=== PATIENT | male | born 1940 | race Caucasian/White ===

== ENCOUNTER 2017-04-27 15:44 | Inpatient (IN) | payer OTHER, MEDICARE ==
[~2017-04-27 15:44] MED LIST: AMINOPHYLLINE INJ/PF 250 MG/10 ML SDV IV ONE; REGADENOSON INJ 0.4 MG/5 ML DISP.SYRIN IV ONE
--- NOTE | 2017-04-27 15:56 | ER Document Report ---
ED Medical Screen (RME) - General Chief Complaint: Irregular Pulse Stated Complaint: RAPID HEART BEAT Time Seen by Provider: 04/27/17 15:55 Mode of Arrival: Wheelchair Information source: Patient TRAVEL OUTSIDE OF THE [place] IN LAST 30 DAYS: No - HPI Patient complains to provider of: Rapid heart rate Notes: 04/27/17 15:55 Patient is a 76-year-old male presenting to the emergency room complaining rapid heart rate, EKG is consistent with SVT at a rate of 161, patient was immediately taken to a room in the main department - Related Data Allergies/Adverse Reactions: No Known Allergies Allergy (Verified 09/08/15 07:41) Past Medical History - Past Medical History Cardiac Medical History: Reports: Hx Hypertension Endocrine Medical History: Reports: Hx Diabetes Mellitus Type 2 Renal/ Medical History: Denies: Hx Peritoneal Dialysis Past Surgical History: Reports: Hx Adenoidectomy - Immunizations Hx Diphtheria, Pertussis, Tetanus Vaccination: No Physical Exam - Vital signs Vitals: Pulse Resp BP Pulse Ox 164 H 18 181/113 H 97 04/27/17 15:53 04/27/17 15:53 04/27/17 15:53 04/27/17 15:53 Course - Vital Signs Vital signs: Temp Pulse Resp BP Pulse Ox 164 H 18 181/113 H 97 04/27/17 15:53 04/27/17 15:53 04/27/17 15:53 04/27/17 15:53
[2017-04-27] MEDS ORDERED: ADENOSINE INJ/PF 6 MG/2 ML SDV IV ONE ×2 (15:58→16:27)
[2017-04-27] MEDS ORDERED: NORMAL SALINE 1000 ML 1,000 ML IV ONE ×2 (16:06→17:48)
--- NOTE | 2017-04-27 16:07 | ER Document Report ---
ED Cardiac - General Mode of Arrival: Wheelchair Information source: Patient TRAVEL OUTSIDE OF THE [place] IN LAST 30 DAYS: No <CELESTINO DALAL - Last Filed: 04/27/17 17:12> <HEAVENLY GTZ - Last Filed: 04/27/17 17:35> - General Chief Complaint: Irregular Pulse Stated Complaint: RAPID HEART BEAT Time Seen by Provider: 04/27/17 15:55 Notes: This 76-year-old male patient comes emergency room for rapid heart rate. He reports he woke up Saturday with some right-sided chest discomfort and noticed his heart was racing. He finally came to the emergency room today at the prompting of a neighbor friend. The triage and EKG showed a heart rate of 163 and suggested SVT. Close analysis of the EKG suggested a slight discrepancy in some of the RR intervals. He was given Adenocard which only minimally slowed the rate but made the monitor strip appeared to be more in atrial flutter than SVT. Based on this he was given 25 mg of Cardizem IV and it slowed the rate to 77 showing obvious atrial flutter with 4-1 block. There are no other acute changes noted on the EKG. He has never had this problem in the past. There is been no fever, cough, shortness of breath. He had been on lisinopril in the past for blood pressure but stopped taking it 6-8 months ago. He does take 5 mg of glipizide twice daily for type 2 diabetes. (HEAVENLY GTZ) - Related Data Allergies/Adverse Reactions: No Known Allergies Allergy (Verified 09/08/15 07:41) Past Medical History - General Information source: Patient - Social History Smoking Status: Never Smoker Cigarette use (# per day): No Chew tobacco use (# tins/day): No Smoking Education Provided: No Frequency of alcohol use: None Drug Abuse: None Family History: None Patient has suicidal ideation: No Patient has homicidal ideation: No - Past Medical History Cardiac Medical History: Reports: Hx Hypertension Endocrine Medical History: Reports: Hx Diabetes Mellitus Type 2 Past Surgical History: Reports: Hx Adenoidectomy - Immunizations Hx Diphtheria, Pertussis, Tetanus Vaccination: No <CELESTINO DALAL - Last Filed: 04/27/17 17:12> Review of Systems - Review of Systems Constitutional: No symptoms reported EENT: No symptoms reported Cardiovascular: See HPI, Chest pain, Heart racing Respiratory: No symptoms reported Gastrointestinal: No symptoms reported Genitourinary: No symptoms reported Male Genitourinary: No symptoms reported Musculoskeletal: No symptoms reported Skin: No symptoms reported Hematologic/Lymphatic: No symptoms reported Neurological/Psychological: No symptoms reported -: Yes All other systems reviewed and negative <CELESTINO DALAL - Last Filed: 04/27/17 17:12> Physical Exam - Vital signs Interpretation: Hypertensive, Tachycardic <CELESTINO DALAL - Last Filed: 04/27/17 17:12> <TRESA,HEAVENLY - Last Filed: 04/27/17 17:35> - Vital signs Vitals: Pulse Resp BP Pulse Ox 164 H 18 181/113 H 97 04/27/17 15:53 04/27/17 15:53 04/27/17 15:53 04/27/17 15:53 - Notes Notes: GENERAL: Alert, interacts well, pleasant. HEAD: Normocephalic, atraumatic. EYES: Appear normal. Pupils equal, round, and reactive to light. ENT: Moist mucus membranes, tongue midline. NECK: Full range of motion. Supple. Trachea midline. LUNGS: Clear to auscultation bilaterally, no wheezes, rales, or rhonchi. No respiratory distress. HEART: Tachycardia with a rate of 170. No murmurs, gallops, or rubs. ABDOMEN: Soft, non-tender. Non-distended. Normal bowel sounds. EXTREMITIES: Moves all 4 extremities spontaneously. Normal strength. No edema. NEUROLOGICAL: Alert and oriented x3. Normal speech. No focal neurological deficits. GCS 15. PSYCH: Normal affect, normal mood. SKIN: Warm, dry, normal turgor. No rashes or lesions noted. (CELESTINO DALAL) Course - Laboratory Result Diagrams: 04/27/17 16:00 04/27/17 16:00 <CELESTINO DALAL - Last Filed: 04/27/17 17:12> - Laboratory Result Diagrams: 04/27/17 16:00 04/27/17 16:00 - Diagnostic Test Radiology reviewed: Image reviewed, Reports reviewed - Chest x-ray is unremarkable - EKG Interpretation by Ca EKG shows normal: [place], Intervals, QRS Complexes, ST-T Waves Rate: Normal - 77 Rhythm: A.Flutter When compared to previous EKG there are: Other - First twelve-lead suggested supraventricular tachycardia with a heart rate of 163, the current EKG is after Cardizem bolus. - Consults Dr. Andrews Time consulted: 17:25 Consulted provider: will come to ER - IMCU admission <HEAVENLY GTZ - Last Filed: 04/27/17 17:35> - Vital Signs Vital signs: Temp Pulse Resp BP Pulse Ox 164 H 20 151/67 H 99 04/27/17 15:53 04/27/17 16:17 04/27/17 16:17 04/27/17 16:17 - Laboratory Laboratory results interpreted by me: 04/27/17 04/27/17 16:00 16:00 RBC 5.56 H BUN 26 H Creatinine 1.68 H Est GFR ( Amer) 49 L Est GFR (Non-Af Amer) 40 L Glucose 124 H Direct Bilirubin 0.5 H Alkaline Phosphatase 133 H Creatine Kinase 202 H Critical Care Note - Critical Care Note Total time excluding time spent on procedures (mins): 35 <HEAVENLY GTZ - Last Filed: 04/27/17 17:35> Discharge <CELESTINO DALAL - Last Filed: 04/27/17 17:12> - Discharge Admitting Provider: Hospitalist Unit Admitted: IMCU <HEAVENLY GTZ - Last Filed: 04/27/17 17:35> - Discharge Clinical Impression: Atrial flutter with rapid ventricular response Condition: Stable Disposition: ADMITTED INPATIENT Scribe Attestation: 04/27/17 16:55 I personally performed the services described in the documentation, reviewed and edited the documentation which was dictated to the scribe in my presence, and it accurately records my words and actions. (HEAVENLY GTZ) Scribe Documentation - Scribe Written by Myke:: Myke Goyal, 04/27/2017 16:35 acting as scribe for :: Tresa <CELESTINO DALAL - Last Filed: 04/27/17 17:12>
[2017-04-27] MEDS ORDERED: DILTIAZEM HCL INJ 25 MG/5 ML VIAL IV ONE (16:13)
[2017-04-27] MEDS ORDERED: DILTIAZEM HCL/D5W 125 MG/125 ML RTUINJ IV PRN ×2 (16:16→17:48)
[2017-04-27] MEDS ORDERED: DILTIAZEM HCL INJ 25 MG/5 ML VIAL ONE (16:16)
[2017-04-27] MEDS ORDERED: DILTIAZEM HCL/D5W 125 MG/125 ML RTUINJ IV ONE (16:20)
[2017-04-27 16:25] LABS: ABSOLUTE BASOPHILS # (AUTO) 0.1 10^3/uL (0.0-0.2); ABSOLUTE EOSINOPHILS # (AUTO) 0.4 10^3/uL (0.0-0.6); ABSOLUTE LYMPHOCYTES (AUTO) 1.8 10^3/uL (0.5-4.7); ABSOLUTE MONOCYTES (AUTO) 0.6 10^3/uL (0.1-1.4); ABSOLUTE NEUT (AUTO) 3.6 10^3/uL (1.7-8.2); BASOPHILS % (AUTO) 1.1 % (0-2); EOSINOPHILS % (AUTO) 5.8 % (0-6); HEMATOCRIT 49.2 % (37.9-51.0); HGB HCT DIFFERENCE 1.8; LYMPHOCYTES % (AUTO) 28.1 % (13-45); MEAN CORPUSCULAR HEMOGLOBIN 30.5 pg (27.0-33.4); MEAN CORPUSCULAR HGB CONC 34.5 g/dL (32.0-36.0); MEAN CORPUSCULAR VOLUME 88 fl (80-97); MONOCYTES % (AUTO) 9.4 % (3-13); RED BLOOD COUNT 5.56 10^6/uL (4.35-5.55); SEGMENTED NEUTROPHILS % (AUTO) 55.6 % (42-78); WHITE BLOOD COUNT 6.5 10^3/uL (4.0-10.5)
--- NOTE | 2017-04-27 16:29 | EKG REPORT ---
SEVERITY:- ABNORMAL ECG - SUPRAVENTRICULAR TACHYCARDIA CONSIDER A FLUTTER WITH 2l1 CONDUCTION LEFT AXIS DEVIATION CONSIDER ANTEROSEPTAL INFARCT NONSPECIFIC T ABNORMALITIES, INFERIOR LEADS : Confirmed by: Cesar Linares 27-Apr-2017 16:28:41
[2017-04-27 16:44] LABS: ALANINE AMINOTRANSFERASE 45 U/L (21-72); ALBUMIN 4.2 g/dL (3.5-5.0); ALKALINE PHOSPHATASE 133 U/L (38-126); ANION GAP 8 (5-19); ASPARTATE AMINO TRANSFERASE 29 U/L (17-59); BILIRUBIN,DIRECT 0.5 mg/dL (0.0-0.4); BILIRUBIN,TOTAL 1.1 mg/dL (0.2-1.3); BLOOD UREA NITROGEN 26 mg/dL (7-20); CALCIUM 9.8 mg/dL (8.4-10.2); CARBON DIOXIDE 29 mmol/L (22-30); CHLORIDE 106 mmol/L (98-107); CREATINE KINASE 202 U/L (55-170); CREATININE RESULT 1.68 mg/dL (0.52-1.25); GLUCOSE 124 mg/dL (75-110); MAGNESIUM 2.1 mg/dL (1.6-2.3); POTASSIUM 4.7 mmol/L (3.6-5.0); SODIUM 143.1 mmol/L (137-145)
--- NOTE | 2017-04-27 17:15 | RADIOLOGY REPORT (SQ) ---
EXAM DESCRIPTION: CHEST SINGLE VIEW COMPLETED DATE/TIME: 04/27/2017 4:56 pm REASON FOR STUDY: A-flutter w/ RVR COMPARISON: None. EXAM PARAMETERS: NUMBER OF VIEWS: One view. TECHNIQUE: Single frontal radiographic view of the chest acquired. RADIATION DOSE: NA LIMITATIONS: None. FINDINGS: LUNGS AND PLEURA: No opacities, masses or pneumothorax. No pleural effusion. MEDIASTINUM AND HILAR STRUCTURES: No masses. Contour normal. HEART AND VASCULAR STRUCTURES: Heart normal in size. Normal vasculature. BONES: No acute findings. HARDWARE: None in the chest. OTHER: No other significant finding. IMPRESSION: NO ACUTE RADIOGRAPHIC FINDING IN THE CHEST. TECHNICAL DOCUMENTATION: JOB ID: [id number]
[2017-04-27] MEDS ORDERED: HEPARIN SODIUM,PORCINE/D5W 25,000 UNIT/250 ML RTUINJ IV PRN (17:24)
[2017-04-27] MEDS ORDERED: HEPARIN SOD (PORCINE) 1,000 UNIT/ML 10 ML VIAL IV PRN ×2 (17:24→17:47)
[2017-04-27] MEDS ORDERED: HEPARIN SOD (PORCINE) 1,000 UNIT/ML 10 ML VIAL IV ONE (17:24)
[2017-04-27 17:39] LABS: PROTHROMBIN TIME 12.7 SEC (11.4-15.4)
[2017-04-27 17:40] LABS: PARTIAL THROMBOPLASTIN TIME 36.5 SEC (23.5-35.8)
[2017-04-27] MEDS ORDERED: MAG HYDROX/AL HYDROX/SIMETH SUSP 30 ML UDCUP PO PRN (17:40)
[2017-04-27] MEDS ORDERED: ONDANSETRON HCL INJ/PF 4 MG/2 ML SDV IV PRN (17:40)
[2017-04-27] MEDS ORDERED: MORPHINE SULFATE 10 MG/ML INJ IV PRN (17:40)
[2017-04-27] MEDS ORDERED: NORMAL SALINE 1000 ML 1,000 ML IV PRN (17:40)
--- NOTE | 2017-04-27 17:59 | PDOC H&P ---
History of Present Illness Admission Date/PCP: 04/27/17 [place] History of Present Illness: TIMUR LOW is a 76 year old male with past medical history of hypertension, diabetes mellitus and possibly chronic kidney disease who presents to the emergency department with complaints of chest discomfort. Patient reports that 2 days ago he had an episode of right-sided chest pain. He attributed this to lifting crates of soda at work. He took an Aleve and reports it went away. The following day on 929 that evening he noted when taking his blood pressure and heart rate that his heart rate was 150. He noticed that his heart was racing today and a neighbor encouraged him to come to the emergency department. Patient was found to be in SVT and was given adenosine which was then shown to be a flutter. Patient was given diltiazem and his heart rate is now in the 70s. He reports that he stopped taking lisinopril because his blood pressure would go down at work. He does report that when he goes to the doctor he feels his blood pressure and heart rate are both artificially elevated. He also reports that he only takes 1 of his glipizide daily as opposed to 2. He is currently chest pain-free. He has no complaints. Past Medical History Cardiac Medical History: Reports: Hypertension Endocrine Medical History: Reports: Diabetes Mellitus Type 2 Renal/ Medical History: Reports: Nephrolithiasis Past Surgical History Past Surgical History: Reports: Tonsillectomy Social History Smoking Status: Former Smoker Last Time Smoked: Quit 8 years ago Frequency of Alcohol Use: None Hx Recreational Drug Use: No Hx Prescription Drug Abuse: No - Advance Directive Resuscitation Status: Full Code Surrogate healthcare decision maker:: Kyree Cobb, son Family History Family History: CAD Parental Family History Reviewed: Yes Children Family History Reviewed: Yes Sibling(s) Family History Reviewed.: Yes Medication/Allergy Home Medications: Dietary Supplement [Catalytic Formula] 1 each PO DAILY 09/08/15 Glipizide [Glipizide ER] 5 mg PO BID 09/08/15 Lisinopril 10 mg PO DAILY 09/08/15 Oxycodone HCl/Acetaminophen [Percocet 5-325 mg Tablet] 1 - 2 tab PO ASDIR PRN # 15 tablet 09/08/15 Tamsulosin HCl [Flomax 0.4 mg Cap.sr] 0.4 mg PO DAILY #7 cap.sr.24h 09/08/15 Allergies/Adverse Reactions: No Known Allergies Allergy (Verified 09/08/15 07:41) Review of Systems Constitutional: ABSENT: chills, fever(s), headache(s), weight gain, weight loss Eyes: ABSENT: visual disturbances Ears: ABSENT: hearing changes Cardiovascular: PRESENT: chest pain, palpitations. ABSENT: dyspnea on exertion , edema, orthropnea Respiratory: ABSENT: cough, dyspnea, hemoptysis, sputum Gastrointestinal: ABSENT: abdominal pain, constipation, diarrhea, dysphagia, hematemesis, hematochezia, melena, nausea, vomiting Genitourinary: ABSENT: dysuria, hematuria Musculoskeletal: ABSENT: joint swelling Integumentary: ABSENT: rash, wounds Neurological: ABSENT: abnormal gait, abnormal speech, confusion, dizziness, focal weakness, syncope Psychiatric: ABSENT: anxiety, depression, homidical ideation, suicidal ideation Endocrine: ABSENT: cold intolerance, heat intolerance, polydipsia, polyuria Hematologic/Lymphatic: ABSENT: easy bleeding, easy bruising Physical Exam Vital Signs: Temp Pulse Resp BP Pulse Ox 164 H 20 151/67 H 99 04/27/17 15:53 04/27/17 16:17 04/27/17 16:17 04/27/17 16:17 Intake & Output 04/26/17 04/27/17 04/28/17 06:59 06:59 06:59 Weight 107.8 kg General appearance: PRESENT: no acute distress, well-developed, well-nourished Head exam: PRESENT: atraumatic, normocephalic Eye exam: PRESENT: conjunctiva pink, EOMI, PERRLA. ABSENT: scleral icterus Ear exam: PRESENT: normal external ear exam Mouth exam: PRESENT: moist, tongue midline Neck exam: ABSENT: JVD, lymphadenopathy, thyromegaly, tracheal deviation Respiratory exam: PRESENT: clear to auscultation joleen, symmetrical, unlabored. ABSENT: accessory muscle use, rales, rhonchi, tachypnea, wheezes Cardiovascular exam: PRESENT: irregular rhythm. ABSENT: diastolic murmur, gallop, rubs, systolic murmur Pulses: PRESENT: normal dorsalis pedis pul Vascular exam: PRESENT: normal capillary refill GI/Abdominal exam: PRESENT: normal bowel sounds, soft. ABSENT: distended, firm , guarding, mass, organolmegaly, rebound, rigid, tenderness Rectal exam: PRESENT: deferred Extremities exam: PRESENT: full ROM. ABSENT: calf tenderness, clubbing, pedal edema Musculoskeletal exam: PRESENT: ambulatory Neurological exam: PRESENT: alert, awake, oriented to person, oriented to place , oriented to time, oriented to situation, CN II-XII grossly intact. ABSENT: motor sensory deficit Psychiatric exam: PRESENT: appropriate affect, normal mood. ABSENT: homicidal ideation, suicidal ideation Skin exam: PRESENT: dry, intact, warm. ABSENT: cyanosis, rash Results Laboratory Results: 04/27/17 16:00 04/27/17 16:00 04/27/17 04/27/17 04/27/17 16:00 16:00 16:00 WBC 6.5 RBC 5.56 H Hgb 17.0 Hct 49.2 MCV 88 MCH 30.5 MCHC 34.5 RDW 14.0 Plt Count 189 Seg Neutrophils % 55.6 Lymphocytes % 28.1 Monocytes % 9.4 Eosinophils % 5.8 Basophils % 1.1 Absolute Neutrophils 3.6 Absolute Lymphocytes 1.8 Absolute Monocytes 0.6 Absolute Eosinophils 0.4 Absolute Basophils 0.1 Sodium 143.1 Potassium 4.7 Chloride 106 Carbon Dioxide 29 Anion Gap 8 BUN 26 H Creatinine 1.68 H Est GFR ( Amer) 49 L Est GFR (Non-Af Amer) 40 L Glucose 124 H Calcium 9.8 Magnesium 2.1 Total Bilirubin 1.1 AST 29 ALT 45 Alkaline Phosphatase 133 H Total Protein 7.0 Albumin 4.2 TSH 3.01 04/27/17 04/27/17 16:00 16:00 Creatine Kinase 202 H Troponin I 0.073 EKG Comments: A flutter 4-1 conduction block Impressions: Chest X-Ray 04/27/17 16:44 IMPRESSION: NO ACUTE RADIOGRAPHIC FINDING IN THE CHEST. Assessment & Plan - Diagnosis (1) Atrial flutter with rapid ventricular response Is this a current diagnosis for this admission?: Yes Plan: Place patient on diltiazem drip Of additional 1 L normal saline bolus Check VQ scan to rule out PE Trend cardiac enzymes. Consult cardiology. Obtain echo for determination of atrial size and LVH. If cardiac enzymes remain negative, would like to put in for stress test. Start patient on heparin drip with the idea of transitioning to Coumadin or Eliquis. (2) Diabetes mellitus type 2 in nonobese Is this a current diagnosis for this admission?: Yes Plan: Check a hemoglobin A1c in place on carb controlled diet (3) Chronic kidney disease Qualifiers: Chronic kidney disease stage: stage 3 (moderate) Qualified Code(s): N18.3 - Chronic kidney disease, stage 3 (moderate) Is this a current diagnosis for this admission?: Yes Plan: We only have one additional creatinine for this patient over a year ago which was actually more elevated than this. I suspect this is improved secondary to him stopping lisinopril. He is unaware of any chronic kidney disease. (4) Microscopic hematuria Is this a current diagnosis for this admission?: Yes Plan: Likely secondary to underlying history of nephrolithiasis. Will be cognizant of this and consider CT of the abdomen. - Time Time Spent: 50 to 70 Minutes Medications reviewed and adjusted accordingly: Yes Anticipated discharge: Home - Inpatient Certification Based on my medical assessment, after consideration of the patient's comorbidities, presenting symptoms, or acuity I expect that the services needed warrant INPATIENT care.: Yes I certify that my determination is in accordance with my understanding of Medicare's requirements for reasonable and necessary INPATIENT services [42 CFR 412.3e].: Yes Medical Necessity: Need For IV Fluids, Need For Continuous Telemetry Monitoring , Risk of Complication if Not Cared For in Hospital, Risk of Diagnosis Which Will Require Inpatient Eval/Care/Monitoring Post Hospital Care: D/C Pedicurist Documentation
[2017-04-27] MEDS: HEPARIN SODIUM,PORCINE/D5W 25,000 UNIT/250 ML RTUINJ IV PRN (18:02)
[2017-04-27 18:19] LABS: APPEARANCE,URINE CLEAR; BILIRUBIN,URINE NEGATIVE (NEGATIVE); GLUCOSE, URINE NEGATIVE (NEGATIVE); KETONES,URINE TRACE mg/dL (NEGATIVE); LEUKOCYTE ESTERASE,URINE NEGATIVE (NEGATIVE); NITRITE,URINE NEGATIVE (NEGATIVE); PROTEIN,URINE NEGATIVE (NEGATIVE); UROBILINOGEN,URINE NEGATIVE mg/dL (<2.0)
[2017-04-27] MEDS ORDERED: ATORVASTATIN CALCIUM 40 MG TABLET PO SCH (22:00)
[2017-04-27 23:20] LABS: TROPONIN I 0.089 ng/mL
[2017-04-28 05:13] LABS: CHOLESTEROL 185.96 mg/dL (0-200); CREATINE KINASE 119 U/L (55-170); Direct HDL 26 mg/dL (>40); TRIGLYCERIDES 150 mg/dL (<150)
[2017-04-28 05:17] LABS: CREATINE KINASE MB 2.11 ng/mL (<4.55); TROPONIN I 0.094 ng/mL
[2017-04-28 05:23] LABS: DIRECT LDL 120 mg/dL (<100)
[2017-04-28] MEDS ORDERED: METOPROLOL TARTRATE 25 MG TABLET PO SCH (06:00)
[2017-04-28] MEDS: ASPIRIN 325 MG TABLET, ENT COATED PO SCH (09:16)
[2017-04-28] MEDS ORDERED: METOPROLOL SUCCINATE 25 MG TAB.SR.24H PO SCH (10:00)
--- NOTE | 2017-04-28 10:18 | RADIOLOGY REPORT (SQ) ---
EXAM DESCRIPTION: NM LUNG VENT/PERF SCAN COMPLETED DATE/TIME: 04/28/2017 10:01 am REASON FOR STUDY: new onset a-flutter COMPARISON: None. RADIONUCLIDE AND DOSE: 5.4 millicuries TC-99m MAA Intravenous 32.9 millicuries TC-99m DTPA Inhaled aerosol TECHNIQUE: Eight views of the lungs acquired post ventilation of DTPA aerosol. Eight matching views of the lungs acquired following injection of MAA. LIMITATIONS: None. FINDINGS: VENTILATION: Symmetric and homogeneous distribution of DTPA aerosol during ventilatory pha se. No significant areas of photopenia. PERFUSION: Perfusion images with normal homogenous activity and no wedge-shaped or segmental defects. No ventilation-perfusion mismatches. OTHER: No other significant finding. IMPRESSION: Low probability for pulmonary embolus. TECHNICAL DOCUMENTATION: JOB ID: [id number] [employer]- All Rights Reserved
[2017-04-28] MEDS: METOPROLOL SUCCINATE 50 MG TAB.SR.24H PO SCH ×2 (11:50→21:44)
[2017-04-28 12:09] LABS: CREATINE KINASE MB 2.02 ng/mL (<4.55); TROPONIN I 0.063 ng/mL
--- NOTE | 2017-04-28 13:00 | EKG REPORT ---
SEVERITY:- BORDERLINE ECG - SINUS RHYTHM BORDERLINE ST ELEVATION, INFERIOR LEADS : Confirmed by: Cesar Linares 28-Apr-2017 12:59:48
--- NOTE | 2017-04-28 13:00 | EKG REPORT ---
SEVERITY:- ABNORMAL ECG - A-FLUTTER W/ PREDOM 4:1 AV BLOCK, A-RATE 306 NONSPECIFIC INTRAVENTRICULAR CONDUCTION DELAY : Confirmed by: Cesar Linares 28-Apr-2017 12:59:55
--- NOTE | 2017-04-28 13:01 | EKG REPORT ---
SEVERITY:- ABNORMAL ECG - SUPRAVENTRICULAR TACHYCARDIA DUE TO A FLUTTER WITH 2:1CONDUCTION NONSPECIFIC INTRAVENTRICULAR CONDUCTION DELAY CONSIDER ANTEROSEPTAL INFARCT : Confirmed by: Cesar Linares 28-Apr-2017 13:00:48
[2017-04-28] MEDS: HEPARIN SODIUM,PORCINE/D5W 25,000 UNIT/250 ML RTUINJ IV PRN (14:25)
--- NOTE | 2017-04-28 16:25 | PDOC PROGRESS REPORT ---
Subjective Progress Note for:: 04/28/17 Subjective:: Patient spontaneously converted overnight to sinus rhythm. Patient denies chest pain, shortness of breath, abdominal pain, nausea, vomiting , fevers, chills, diarrhea, constipation, headache, new onset weakness. Physical Exam Vital Signs: Temp Pulse Resp BP Pulse Ox 97.7 F 79 20 121/73 96 04/28/17 03:55 04/28/17 03:55 04/28/17 03:55 04/28/17 04:01 04/28/17 03:55 Intake & Output 04/27/17 04/28/17 04/29/17 06:59 06:59 06:59 Intake Total 908 Output Total 750 Balance 158 Weight 108 kg Exam: General: Awake alert and oriented x3, no acute respiratory distress HEENT: AT/NC, PERRL, EOMI, oropharynx is moist, pink, no scleral icterus, no conjunctival injection Neck: No JVD, trachea midline Chest: Clear to auscultation bilaterally, no wheezes rhonchi or rales CV: Regular rate and rhythm, normal S1 and S2, no murmur, rub, or gallop Abdomen: Soft, nontender to palpation, nondistended, active bowel sounds; no rebound, rigidity, or guarding Extremities: No cyanosis, clubbing or edema Neuro: Cranial nerves II through XII are grossly intact without focal deficits; awake alert and oriented x3 Psych: Normal mood and affect Results Laboratory Results: 04/27/17 04/27/17 04/28/17 18:07 18:20 04:31 Triglycerides 150 Cholesterol 185.96 LDL Cholesterol Direct 120 H VLDL Cholesterol 30.0 HDL Cholesterol 26 L Urine Color YELLOW Urine Appearance CLEAR Urine pH 6.0 Ur Specific [place] 1.010 Urine Protein NEGATIVE Urine Glucose (UA) NEGATIVE Urine Ketones TRACE H Urine Blood NEGATIVE Urine Nitrite NEGATIVE Ur Leukocyte Esterase NEGATIVE Urine WBC (Auto) 0 Urine RBC (Auto) 0 Stool Occult Blood NEGATIVE 04/27/17 04/28/17 04/28/17 22:40 04:31 04:31 Creatine Kinase 119 CK-MB (CK-2) 3.00 2.11 Troponin I 0.089 0.094 Impressions: Chest X-Ray 04/27/17 16:44 IMPRESSION: NO ACUTE RADIOGRAPHIC FINDING IN THE CHEST. Assessment & Plan - Diagnosis (1) Atrial flutter with rapid ventricular response Is this a current diagnosis for this admission?: Yes Plan: Patient has spontaneously converted to sinus rhythm. VQ scan is negative for PE Cardiac enzymes do not reveal acute SC. Consult cardiology, and appreciate their input. Questionable concern for cardiac pericarditis at this time, peding echo. Obtain echo for determination of atrial size and LVH. Stress test tomorrow if able. Patient on heparin drip with the idea of transitioning to Coumadin or Eliquis. (2) Diabetes mellitus type 2 in nonobese Is this a current diagnosis for this admission?: Yes Plan: On carb controlled diet Holding glipizide at this time due to his kidney function. (3) Chronic kidney disease Qualifiers: Chronic kidney disease stage: stage 3 (moderate) Qualified Code(s): N18.3 - Chronic kidney disease, stage 3 (moderate) Is this a current diagnosis for this admission?: Yes Plan: We only have one additional creatinine for this patient over a year ago which was actually more elevated than this. I suspect this is improved secondary to him stopping lisinopril. He is unaware of any chronic kidney disease. Feel this is likely chronic secondary to his hypertension and diabetes (4) Microscopic hematuria Is this a current diagnosis for this admission?: Yes (5) Hyperlipidemia Qualifiers: Hyperlipidemia type: unspecified Qualified Code(s): E78.5 - Hyperlipidemia , unspecified Is this a current diagnosis for this admission?: Yes Plan: Patient refused statin as he reports it made him feel funny the last time he took it. Would consider Pravachol as an outpatient but we do not carry this here. (6) Obesity (BMI 30.0-34.9) Is this a current diagnosis for this admission?: Yes - Time Time Spent with patient: 25-34 minutes Medications reviewed and adjusted accordingly: Yes
[2017-04-29 05:07] LABS: HEMATOCRIT 41.6 % (37.9-51.0); HGB HCT DIFFERENCE 1.3; MEAN CORPUSCULAR HEMOGLOBIN 30.2 pg (27.0-33.4); MEAN CORPUSCULAR HGB CONC 34.4 g/dL (32.0-36.0); MEAN CORPUSCULAR VOLUME 88 fl (80-97); RED BLOOD COUNT 4.73 10^6/uL (4.35-5.55); RED CELL DISTRIBUTION WIDTH 13.9 % (11.5-14.0); WHITE BLOOD COUNT 6.7 10^3/uL (4.0-10.5)
[2017-04-29 05:15] LABS: HEMOGLOBIN 14.3 g/dL (13.5-17.0)
[2017-04-29 06:53] LABS: APPEARANCE,URINE CLEAR; BILIRUBIN,URINE NEGATIVE (NEGATIVE); GLUCOSE, URINE NEGATIVE (NEGATIVE); KETONES,URINE NEGATIVE (NEGATIVE); LEUKOCYTE ESTERASE,URINE NEGATIVE (NEGATIVE); NITRITE,URINE NEGATIVE (NEGATIVE); PROTEIN,URINE NEGATIVE (NEGATIVE); URINE SPECIFIC GRAVITY 1.009; UROBILINOGEN,URINE NEGATIVE mg/dL (<2.0)
[2017-04-29 06:58] LABS: BACTERIA,URINE TRACE /HPF
[2017-04-29] MEDS: HEPARIN SODIUM,PORCINE/D5W 25,000 UNIT/250 ML RTUINJ IV PRN (09:34)
--- NOTE | 2017-04-29 10:16 | CONSULTATION REPORT E ---
Consultation Report NAME: TIMUR LOW : 1940 AGE: 76Y DATE: 04/28/2017 307 A TO: VINNY COSTELLO M.D. FROM: ALEC GRANGER M.D. Requesting Physician REASON FOR CONSULTATION: Paroxysmal atrial flutter. HISTORY OF PRESENT ILLNESS: Patient is a 76-year-old male with a history of hypertension, diabetes mellitus, and probably chronic kidney disease, who states on Saturday he moved some crates and did some lifting. When he woke up the next day morning, he had right-sided chest pain which was a dull ache. It did not increase with exertion, and there was no associated diaphoresis, shortness of breath. There was no pleuritic chest pain and the chest pain did not increase with inspiration, and there was no partial changes that caused the symptoms to get worse or better. Subsequently, the patient after several hours took some Aleve and chest pain was completely relieved. The patient is not able to state in the chest area where the pain was is tender or not. Subsequently, on , the patient had palpitations which came and went. There were no associated symptoms of shortness of breath, chest pain, dizziness, or diaphoresis. Subsequently, this continued and was sustained on Saturday, and hence, he came to the emergency room and was found to be in atrial flutter with a rapid ventricular response with a heart rate in the 160s, and the patient did state that the heart rate was paced rate. The patient initially was thought to be , unable to , and after that, the diagnosis of atrial flutter was made. The patient was given diltiazem and the heart rate slowed down in the 70s, and subsequently, he converted to sinus rhythm, and the patient was on metoprolol 50 mg orally q.12 h. The patient has no further reports of chest pain or . There is no PND, orthopnea, or leg edema. There are no TIA or CVA symptoms. There is no shortness of breath. PAST MEDICAL HISTORY: This is the first time that the patient has had palpitations. He has no history of coronary artery disease or AR or anginal symptoms. He has a history of diabetes mellitus, with probably chronic kidney disease. He also has a history of hypertension but he stopped taking lisinopril since he has had dizziness. He also has a history of hyperlipidemia but states when his atorvastatin was increased to 40 from 20 mg, he had blurred vision and he stopped taking it. He has no TIA or CVA symptoms. There is no history of thyroid disease. There is no history of anxiety or depression. PAST SURGICAL HISTORY: Tonsillectomy and adenoidectomy. SOCIAL HISTORY: The patient is a former smoker and quit smoking many years ago. FAMILY HISTORY: He states his father did have myocardial infarction. ALLERGIES: No known drug allergies. ADVANCED DIRECTIVES: The patient is FULL CODE. His son is the surrogate medical decision maker. MEDICATIONS: 1. Heparin IV continuous adjusted to the PTT. 2. Aspirin 325 mg daily. 3. Normal saline, he has a bolus or 1000 . 4. sodium NCO q.4 p.r.n. 5. Metoprolol 50 mg p.o. q.12 h. 6. Morphine 2 mg q.4 h. p.r.n. but has not needed this. 7. Zofran 4 mg q.6 h. p.r.n. REVIEW OF SYSTEMS: CONSTITUTIONAL: Denies any chills, fevers, or rigors. There is no fatigue or lethargy. HEENT: The patient has no history of head injuries. The patient states that in the past, when he was on lisinopril, he had many dizzy spells, and he stopped taking it and they have not recurred. The patient is slightly hard of hearing in the left ear. He has no tinnitus. There are no recurrent ear infections. There is no conjunctival pallor or scleral icterus. There is no diplopia or amblyopia. There is no excessive tearing from the eye. NOSE: There is no history of hay fever. There is no history of nose bleeds. There is no nasal polyposis. MOUTH: No history of altered taste sensation. No history of ulcers in the mouth. No bleeding from the gums. THROAT: There is no odynphagia or dysphagia. There is no recurrent sore throats. SKIN: There is no pruritus. There is no yellowish discoloration of the skin. There is no petechiae or ecchymosis. There is no psoriasis. NECK: No history of enlarged neck lymph nodes or neck swelling. No goiter. LUNGS: There is no history of asthma, COPD. No history of sleep apnea. No history of pulmonary embolism. No history of cough or sputum production. No wheezing. There is no pleuritic chest pain. CARDIAC: History of hypertension. The patient was off the medication because of his lisinopril caused his blood pressure to drop. He has no history of congestive heart failure. No history of AR or anginal symptoms. This is the first episode of atrial flutter which now has converted to sinus rhythm. There is no PND, orthopnea, or leg edema. The patient has non-cardiac chest pain on the right side which was relieved with Aleve. MUSCULOSKELETAL: No history of arthritis or collagen vascular disease. GI: No history of bleeding ulcers. No history of GI leaks. No history of jaundice. No history of fatty food intolerance. No history of altered bowel movements. No abdominal pain. History of chronic kidney disease, most likely now with chronic kidney disease stage 3. There is no hematuria, pyuria, or dysuria. There are no symptoms of enlarged prostate. PLATER HOT DIP: There is no history of TIA or CVA. There is no history of headaches, migraines, or seizures. PSYCHIATRIC: There is no history of anxiety or depression. There is no suicidal ideation or homicidal ideation. VASCULAR: No history of claudication. No history of calf or ____ claudication. No history of DVT. HEMATOLOGIC: No history of bleeding ulcers. No history of clotting disorder. PHYSICAL EXAMINATION: GENERAL: The patient is afebrile. He is well groomed. He is mildly obese, in no acute distress. VITAL SIGNS: Patient is afebrile with a temperature of 97.8 degrees Fahrenheit, pulse 69 beats per minute, blood pressure 132/82, respirations 20 per minute, pulse oximetry of 97% on room air. HEENT: HEAD: Atraumatic, cephalic. EYES: Pupils are equal, round, regular, and reactive to light and accommodation. Extraocular movements are normal. There is no conjunctival pallor. There is no scleral icterus. EARS: There are no lesions on the pinna. External auditory canals are clear. Tympanic membranes are intact. NOSE: There is no deviated nasal septum. There is no inflammation of the nasal mucous membrane. There are no polyps. MOUTH: There is no altered taste sensation. There are no ulcers in the mouth. There is no bleeding from the gums. THROAT: There is no redness of the oropharynx. There are no exudates in the throat. SKIN: There is no petechiae or ecchymosis. There are no skin rashes or skin lesions. NECK: Supple. There is no JVD. Carotids are equal. There is no bruit. There is no goiter. There is no lymphadenopathy. LUNGS: Trachea is central. Clear to auscultation and percussion. There is no chest wall tenderness. CARDIAC: S1 and S2 is heard normally. S1 is normal intensity. sinus rhythm. There is a systolic murmur in the left sternal border and the apex. There is no rub. ABDOMEN: Soft, slightly obese, nontender. There is no hepatosplenomegaly. Bowel sounds are well heard. There are no masses. EXTREMITIES: Femorals well heard. Leg pulses well heard. There are no femoral bruits. There is no pedal edema. There is no DVT or cellulitis. There is no cyanosis or clubbing. Capillary refill is normal. CENTRAL NERVOUS SYSTEM: The patient is conscious, awake, alert, oriented x3, with no focal deficit. PSYCHIATRIC: The patient's judgement and insight are intact. His affect is normal. IMAGING STUDIES: The patient's EKG yesterday showed atrial flutter with a controlled ventricular response rate. The patient's ventilation perfusion scan reported low probability for pulmonary embolism. The patient's chest x-ray is negative for any acute chest x-ray findings. LABORATORY DATA: The patient's white count is 6,500, RBC is 5.56, hemoglobin is 17, hematocrit 49.2, platelet count is 189,000. In view of the patient's EKG, when he converted to normal sinus rhythm, there was borderline attenuation in inferior lead and also there seemed to be IA segment depression in and lead III. The patient has a past history of pericarditis but the patient is asymptomatic but this still could be subclinical pericarditis since the patient's Sed rate is 36 and his CRP was elevated at 27.8. His troponin I is around is 0.089, 0.094, and 0.063. CK-MB were negative. The patient's triglycerides are 150 with a paced total cholesterol of with an LDL cholesterol elevated at 120, and his HDL cholesterol is 26. The patient's TSH is 301. Sodium was 143.1, potassium 4.7, chloride 106, CO2 is 29, BUN is 26, creatinine is 2.68, GFR is reduced at 40 mL. There is chronic kidney disease stage III. His calcium is 9.8, magnesium is 2.1. Liver function tests are normal except for a slightly elevated alkaline phosphatase of 133. His direct bilirubin was elevated at 0.5. IMPRESSION: Paroxysmal atrial flutter. RECOMMENDATION: 1. Continue the patient on IV heparin. We will continue that but be cautious to make sure that the patient has not developed a pericardial effusion. 2. Noncardiac chest pain. 3. Borderline ST-elevation anterior lead with IA segment depression in lead III, without any symptoms of pericardial pericarditis but the elevated Sed rate and elevated CRP still could be subclinical for carditis. 4. Clinical pericarditis, most likely. 5. Hypertension. Blood pressure well controlled. 6. Diabetes mellitus type 2, with chronic kidney disease. 7. Chronic kidney disease stage III. 8. Elevated lipid panel. Continue metoprolol. Continue aspirin. Continue the patient on IV heparin but would be very cautious and monitor the patient for any paper identifying. Repeat EKG in the a.m. Check an echo for evidence of pericarditis, and also to see if there is mitral valve disease. Also, later would recommend that the patient have a Cardiolite stress test; this can be done as an outpatient. Also, the patient would be recommended to have a 30-day Event Monitor. Note, the patient's CHADS VASC score is 3. In view of the patient's age, diabetes mellitus, and hypertension, and hence, the patient will benefit from chronic anticoagulation therapy if there are no contraindications to it. Note that the patient was seen this morning at 7:30 a.m. His medications were reviewed. The decision making in this case was a very complex medical decision making involved, in view of the patient's asymptomatic status at present but still the patient still could have subclinical pericarditis. His medications were reviewed and the case was discussed with the patient and the on the case. Note: Forty-five minutes was spent on this visit, with more than 50% of time spent on direct patient care. Dr. Linares will follow the patient in the a.m. The patient cannot have a stress test tomorrow since the patient had a VQ scan yesterday, and so the patient would have to wait at least 72 hours prior to have a Lexiscan Cardiolite stress test. DICTATING PHYSICIAN: VINNY COSTELLO M.D. [id number] PHY#: [id number] ID: [id number] JOB#: [id number] ACCT: [id number] cc:VINNY COSTELLO M.D. >
[2017-04-29] MEDS: METOPROLOL SUCCINATE 50 MG TAB.SR.24H PO SCH ×2 (11:43→22:02)
[2017-04-29] MEDS: ASPIRIN 325 MG TABLET, ENT COATED PO SCH (11:44)
--- NOTE | 2017-04-29 13:13 | DRAGON STRESS TEST REPORT ---
INTRAVENOUS LEXISCAN CARDIOLITE STRESS TEST USING SINGLE PHOTON EMMISION COMPUTERIZED TOMOGRAPHIC. DATE OF PROCEDURE: April 29 INDICATION : Chest pain CARDIAC RISK FACTORS: Diabetes, hypertension, family history of coronary artery disease RESTING EKG: Sinus rhythm, no baseline ST-T wave changes noted. STRESS EKG: No significant changes noted with LexiScan bolus REASON FOR TERMINATION: Protocol. PROCEDURE REPORT: Baseline heart rate 75 beats per minute with blood pressure of 163/89. Patient had no significant complaints. Heart rate at 2 minutes post bolus 105 with a blood pressure of 164/86. 3 minutes post bolus heart rate 93 with blood pressure of 160/89. No significant EKG changes were noted. Patient had no significant complaints during the procedure or postprocedure. Patient injected with Aminophyllin 75 mg at 3 minutes or later after Lexiscan bolus. CONCLUSIONS: Normal EKG and hemodynamic response to IV LexiScan. NUCLEAR DATA: At rest the patient was given 14.82 millicuries of technetium 99 sestamibi injected intravenously. As per protocol rest gated SPECT images were obtained. Subsequently the patient was given intravenous LexiScan at a dose of 0.4 mg in 5 mL intravenously, followed by flush with normal saline. Subsequently the stress dose of 43.1 millicuries of technetium 99 sestamibi was injected intravenously. As per protocol stress gated images were obtained. NUCLEAR INTERPRETATION: Both raw and processed data were used for interpretation. Visual, qualitative, computer-generated quantitative data was used. There was good myocardial uptake of technetium compound. Motion artifact and soft tissue attenuations were noted. Increased visceral uptake was noted. Transient perfusion defect noted involving the distal and mid anterior wall, of mild severity. No definitive areas of fixed perfusion defect or scars noted. EKG gated imaging showed LV EF at 44 %, rest and stress gated EF similar visually. Mild distal anterior wall hypokinesia noted. T. I D. ratio was 1.18. Lung heart ratio noted to be within normal limits 0.32. No significant extracardiac and abnormal radiotracer activities were noted. RV free wall uptake was noted to be mildly increased. IMPRESSION: Also refer to comments under nuclear interpretation. Also test results needs to be interpreted in the context of pretest probability. 1. Mild mid and distal anterior wall LexiScan induced myocardial ischemia noted. 2. There is no definitive scintigraphic evidence of myocardial infarction/scar. 3. EKG gated imaging shows left ventricular ejection fraction of approximately 44 %. 4. Clinical correlation requested as occasionally single vessel disease or balanced ischemia could be missed. In approximately 10% of the cases Lexiscan may not cause adequate vasodilatory stress. RECOMMENDATIONS: Aggressive risk factor modification, maximize medical therapy. May consider heart catheterization if clinically indicated. Clinical correlation with echocardiogram derived ejection fraction. Inability to exercise by itself can lead to increased cardiovascular event risks. Consider cardiology consultation and or follow-up if clinically indicated. I AM AVAILABLE FOR CARDIOLOGY CONSULTATION AND FOLLOWUP IF REQUESTED BY PMRUDDY Figueroa M.D. Technician Inventory Specialist product development manager, Board certified in cardiovascular diseases, Nuclear cardiology, Echocardiography Cardiac CT and cardiac MRI Ph. [phone] CARLOS
--- NOTE | 2017-04-29 13:46 | PDOC PROGRESS REPORT ---
Subjective Progress Note for:: 04/29/17 Subjective:: Denies any chest pain or shortness of breath. No chills fever or coughing. No PND orthopnea. No dizziness or lightheadedness. Patient reports he did he did not even notice palpitations. Physical Exam Vital Signs: Temp Pulse Resp BP Pulse Ox 97.8 F 76 18 174/74 H 95 04/29/17 11:25 04/29/17 11:25 04/29/17 11:25 04/29/17 11:25 04/29/17 11:25 Intake & Output 04/28/17 04/29/17 04/30/17 06:59 06:59 06:59 Intake Total 908 1295 Output Total 750 2200 Balance 158 -905 Weight 108 kg 108 kg General appearance: PRESENT: no acute distress, cooperative Head exam: PRESENT: normocephalic Eye exam: PRESENT: EOMI Mouth exam: PRESENT: moist, neck supple Neck exam: ABSENT: JVD Respiratory exam: PRESENT: clear to auscultation joleen Cardiovascular exam: PRESENT: RRR. ABSENT: gallop GI/Abdominal exam: PRESENT: soft. ABSENT: distended, tenderness Extremities exam: PRESENT: other - Trace lower extremity edema Neurological exam: PRESENT: alert, awake, oriented to situation Skin exam: PRESENT: dry, warm. ABSENT: cyanosis Results Laboratory Results: 04/29/17 03:43 04/29/17 04/29/17 03:43 06:15 WBC 6.7 RBC 4.73 Hgb 14.3 D Hct 41.6 MCV 88 MCH 30.2 MCHC 34.4 RDW 13.9 Plt Count 136 L Urine Color STRAW Urine Appearance CLEAR Urine pH 5.0 Ur Specific [place] 1.009 Urine Protein NEGATIVE Urine Glucose (UA) NEGATIVE Urine Ketones NEGATIVE Urine Blood NEGATIVE Urine Nitrite NEGATIVE Ur Leukocyte Esterase NEGATIVE 04/27/17 04/28/17 04/28/17 22:40 04:31 04:31 Creatine Kinase 119 CK-MB (CK-2) 3.00 2.11 Troponin I 0.089 0.094 04/28/17 11:05 Creatine Kinase CK-MB (CK-2) 2.02 Troponin I 0.063 Impressions: Lung Scan-VQ NM 04/27/17 00:00 IMPRESSION: Low probability for pulmonary embolus. Chest X-Ray 04/27/17 16:44 IMPRESSION: NO ACUTE RADIOGRAPHIC FINDING IN THE CHEST. Assessment & Plan - Diagnosis (1) Atrial flutter with rapid ventricular response Is this a current diagnosis for this admission?: Yes (2) Chronic kidney disease Qualifiers: Chronic kidney disease stage: stage 3 (moderate) Qualified Code(s): N18.3 - Chronic kidney disease, stage 3 (moderate) Is this a current diagnosis for this admission?: Yes (3) Diabetes mellitus type 2 in nonobese Is this a current diagnosis for this admission?: Yes (4) Hyperlipidemia Qualifiers: Hyperlipidemia type: unspecified Qualified Code(s): E78.5 - Hyperlipidemia , unspecified Is this a current diagnosis for this admission?: Yes - Time Time Spent with patient: 25-34 minutes - Plan Summary Plan Summary: We are going to continue heparin drip, Eliquis started. Discussed with cardiology, 12 hour overlap needed we will therefore discontinue heparin drip in a.m. at 6:00. We will decrease aspirin to 81 mg p.o. daily. The patient stable can be discharged discharge in the morning.
[2017-04-29] MEDS: APIXABAN 5 MG TABLET PO SCH (18:41)
--- NOTE | 2017-04-29 19:35 | PDOC PROGRESS REPORT ---
Subjective Progress Note for:: 04/29/17 Subjective:: Patient seems to be doing better with gradual improvement. Pt is denying any chest arm or neck discomfort. Patient denying any PND, orthopnea. Patient denied any sustained palpitations, dizziness, syncope, near syncope. Patient denying any fever chills. Patient denying any other significant discomfort. Patient is maintaining sinus rhythm. Nuclear stress test procedure was discussed and scheduled. Review of systems: Rest review of systems negative. Medications: Medications have been reviewed. Physical Exam Vital Signs: Temp Pulse Resp BP Pulse Ox 97.7 F 71 18 140/88 H 94 04/29/17 16:03 04/29/17 16:03 04/29/17 16:03 04/29/17 17:00 04/29/17 16:03 Intake & Output 04/28/17 04/29/17 04/30/17 06:59 06:59 06:59 Intake Total 908 1295 651 Output Total 750 2200 950 Balance 158 -905 -299 Weight 108 kg 108 kg Exam: GENERAL: well-nourished and in no acute distress. Alert and oriented x3 HEAD: Atraumatic, normocephalic. EYES: Pupils equal round and reactive to light, extraocular movements intact, sclera anicteric, conjunctiva are normal. ENT: TMs normal, nares patent, oropharynx clear without exudates. Moist mucous membranes. No oral ulcerations or bleeding gums noted NECK: supple without lymphadenopathy. Trachea is central. No cervical or axillary lymphadenopathy noted. Carotids are 2+, JVD WNL LUNGS: Respiration seems nonlabored, no significant accessory muscle action noted. Breath sounds clear to auscultation bilaterally and equal noted. No wheezes rales or rhonchi noted. No significant dullness noted on percussion. CHEST: Palpation of the chest wall shows no significant chest wall tenderness. No other significant abnormalities noted. 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 ABDOMEN: Soft, no significant tenderness appreciated, normoactive bowel sounds. No guarding, no rebound. No rigidity noted . No masses appreciated. EXTREMITIES: Pedal pulses are 1-2+, no calf tenderness noted. No clubbing or cyanosis.trace to 1+ pedal edema noted NEUROLOGICAL: Focused neurological exam showed no significant neurologic deficit. Normal speech, no focal weakness appreciated. PSYCH: Normal mood, normal affect. Judgment and insight within normal limits. SKIN: No significant ecchymosis, rash, ulcerations or signs of pruritus noted. MUSCULOSKELETAL EXAM: No significant joint swelling noted. Results Laboratory Results: 04/29/17 03:43 04/29/17 04/29/17 03:43 06:15 WBC 6.7 RBC 4.73 Hgb 14.3 D Hct 41.6 MCV 88 MCH 30.2 MCHC 34.4 RDW 13.9 Plt Count 136 L Urine Color STRAW Urine Appearance CLEAR Urine pH 5.0 Ur Specific [place] 1.009 Urine Protein NEGATIVE Urine Glucose (UA) NEGATIVE Urine Ketones NEGATIVE Urine Blood NEGATIVE Urine Nitrite NEGATIVE Ur Leukocyte Esterase NEGATIVE 04/27/17 04/28/17 04/28/17 22:40 04:31 04:31 Creatine Kinase 119 CK-MB (CK-2) 3.00 2.11 Troponin I 0.089 0.094 04/28/17 11:05 Creatine Kinase CK-MB (CK-2) 2.02 Troponin I 0.063 EKG Comments: Telemetry strips shows sinus rhythm. No acute ST-T wave changes noted. Impressions: Lung Scan-VQ NM 04/27/17 00:00 IMPRESSION: Low probability for pulmonary embolus. Chest X-Ray 04/27/17 16:44 IMPRESSION: NO ACUTE RADIOGRAPHIC FINDING IN THE CHEST. Assessment & Plan - Diagnosis (1) Atrial flutter with rapid ventricular response Is this a current diagnosis for this admission?: Yes (2) Chronic kidney disease Qualifiers: Chronic kidney disease stage: stage 3 (moderate) Qualified Code(s): N18.3 - Chronic kidney disease, stage 3 (moderate) Is this a current diagnosis for this admission?: Yes (3) Diabetes mellitus type 2 in nonobese Is this a current diagnosis for this admission?: Yes (4) Hyperlipidemia Qualifiers: Hyperlipidemia type: unspecified Qualified Code(s): E78.5 - Hyperlipidemia , unspecified Is this a current diagnosis for this admission?: Yes - Notes Notes: Patient was seen multiple times. In the morning nuclear stress test procedure was discussed with the patient. Risk benefits were discussed. The nuclear stress test was supervised. Patient was seen after the stress test where the results were discussed. Patient questions were answered. Results discussed also with patient's girlfriend. Based on patient's [id number] score patient qualifies for chronic anticoagulation. This was discussed. Increased risk of stroke discussed. Patient had nuclear stress test performed. This was positive for mild mid and distal anterior wall ischemia. Raw images however did not look to be showing significant ischemia. Since patient not having any chest pain and since patient did not have any significant ST segment changes even when he was tachycardic, I feel the best option would be to maximize medical therapy and consider heart cath if patient fails medical therapy. 2D echo was reviewed. It shows normal LVEF. Patient is agreeable with this approach. Patient does give history of snoring therefore will benefit from a sleep study. Patient informed that if there is recurrence of atrial flutter fibrillation, he will then need to be considered for ablation therapy. - Time Time with patient: Greater than 35 minutes - Total time spent approximately 45 minutes. Patient started on statins. Patient also started on Eliquis. CODE STATUS was discussed, patient remains full code. Surrogate decision-maker unchanged. Multiple medical problems were addressed. More than 50% of the time spent coordinating care, discussing management plans with involved caregivers. Management plans discussed with involved personnels. Medical decision making was of moderate to high complexity, patient's has multiple comorbidities. Medications reviewed and adjusted accordingly: Yes
[2017-04-29] MEDS ORDERED: SIMVASTATIN 40 MG TABLET PO SCH (20:00)
[2017-04-29] MEDS ORDERED: ATORVASTATIN CALCIUM 20 MG TABLET PO SCH (22:00)
--- NOTE | 2017-04-29 22:07 | XCELERA REPORT ---
[address] [address] Transthoracic Echocardiogram Report Name: TIMUR LOW Age: 76 yrs Gender: Male : 1940 Patient Status: Inpatient Patient Location: [address] [place] [address] Study Date: 04/29/2017 08:14 AM Height: 74 in Weight: 237 lb BSA: 2.3 m2 Procedure: A complete two-dimensional transthoracic echocardiogram was performed (2D, M-mode, spectral and color flow Doppler). The study was technically difficult with many images being suboptimal in quality. Reason For Study: Afib RVR Ordering Physician: ALEC GRANGER Performed By: Jerica Otoole Interpretation Summary The study was technically difficult with many images being suboptimal in quality. The left ventricular ejection fraction is within normal limits. The right ventricular systolic function is normal. The left atrium is mildly dilated. There is a trace amount of mitral regurgitation There is no pericardial effusion. MMode/2D Measurements & Calculations RVDd: 3.0 cm LVIDd: 3.9 cm FS: 32.9 % Ao root diam: 3.4 cm IVSd: 1.0 cm LVIDs: 2.6 cm EDV(Teich): 66.7 ml LVPWd: 1.0 cm ESV(Teich): 25.3 ml Ao root area: 9.0 cm2 EF(Teich): 62.1 % LA dimension: 4.1 cm LVOT diam: 2.2 cm LVOT area: 3.8 cm2 Doppler Measurements & Calculations MV E max ronna: MV P1/2t max ronna: Ao V2 max: LV V1 max P.8 cm/sec 80.6 cm/sec 103.8 cm/sec 2.9 mmHg MV A max ronna: MV P1/2t: 47.3 msec Ao max PG: LV V1 max: 47.4 cm/sec MVA(P1/2t): 4.7 cm2 4.3 mmHg 85.5 cm/sec MV E/A: 1.7 MV dec slope: AILYN(V,D): 3.1 cm2 499.3 cm/sec2 PA V2 max: 73.1 cm/sec PA max P.1 mmHg Left Ventricle The left ventricle is grossly normal size. There is mild concentric left ventricular hypertrophy. The left ventricular ejection fraction is within normal limits. Doppler measurements suggest pseudonormalized left ventricular relaxation, which is associated with grade II/IV or mild to moderate diastolic dysfunction. Wall motion cannot be accurately commented on, but no definite regional wall motion abnormalities noted. Right Ventricle The right ventricle is borderline dilated. The right ventricular systolic function is normal. Atria The right atrium is normal in size. The left atrium is mildly dilated. Interarterial septum not well visualized and not well dopplered. Cannot comment on ASD/PFO presence. Mitral Valve The mitral valve leaflets are sclerotic, but show no functional abnormalities. There is no mitral valve stenosis. There is a trace amount of mitral regurgitation. Aortic Valve The aortic valve is not well visualized secondary to technical limitations. There is no aortic valve stenosis. There is a trace amount of aortic regurgitation. Tricuspid Valve The tricuspid valve is not well visualized secondary to technical limitations. There is no tricuspid stenosis. There is a trace or physiologic amount of tricuspid regurgitation. Tricuspid regurgitation jet envelope not well defined to measure RV systolic pressure accurately. Pulmonic Valve The pulmonic valve is not well visualized. Great Vessels The aortic root is not well visualized but is probably normal size. The inferior vena cava appeared normal and decreased > 50% with respiration (RAP 5-10 mmHg). Effusions There is no pericardial effusion. : ALEC GRANGER > Cesar Linares
[2017-04-30 05:35] LABS: HEMATOCRIT 44.8 % (37.9-51.0); HEMOGLOBIN 15.5 g/dL (13.5-17.0); HGB HCT DIFFERENCE 1.7; MEAN CORPUSCULAR HEMOGLOBIN 30.4 pg (27.0-33.4); MEAN CORPUSCULAR HGB CONC 34.7 g/dL (32.0-36.0); MEAN CORPUSCULAR VOLUME 88 fl (80-97); RED BLOOD COUNT 5.11 10^6/uL (4.35-5.55); RED CELL DISTRIBUTION WIDTH 13.7 % (11.5-14.0); WHITE BLOOD COUNT 6.7 10^3/uL (4.0-10.5)
[2017-04-30 06:08] LABS: APPEARANCE,URINE CLEAR; BILIRUBIN,URINE NEGATIVE (NEGATIVE); GLUCOSE, URINE NEGATIVE (NEGATIVE); KETONES,URINE NEGATIVE (NEGATIVE); LEUKOCYTE ESTERASE,URINE NEGATIVE (NEGATIVE); NITRITE,URINE NEGATIVE (NEGATIVE); PROTEIN,URINE NEGATIVE (NEGATIVE); URINE SPECIFIC GRAVITY 1.009; UROBILINOGEN,URINE NEGATIVE mg/dL (<2.0)
[2017-04-30] MEDS: APIXABAN 5 MG TABLET PO SCH (09:12)
[2017-04-30] MEDS: METOPROLOL SUCCINATE 50 MG TAB.SR.24H PO SCH (09:16)
[2017-04-30] MEDS ORDERED: ASPIRIN 81 MG TABLET, ENT COATED PO SCH (10:00)
--- NOTE | 2017-04-30 11:08 | PDOC PROGRESS REPORT ---
Subjective Progress Note for:: 04/30/17 Subjective:: Patient seems to be doing better without any significant complaints. Pt is denying any chest arm or neck discomfort. Patient denying any PND, orthopnea. Patient denied any sustained palpitations, dizziness, syncope, near syncope. Patient denying any fever chills. Patient denying any other significant discomfort. Patient is maintaining sinus rhythm. Nuclear stress test results were reviewed with patient's daughter who came into the town. 2D echo results were also discussed. Review of systems: Rest review of systems negative. Medications: Medications have been reviewed. Physical Exam Vital Signs: Temp Pulse Resp BP Pulse Ox 98.2 F 64 18 141/75 H 98 04/30/17 07:45 04/30/17 07:45 04/30/17 07:45 04/30/17 07:45 04/30/17 07:45 Intake & Output 04/29/17 04/30/17 05/01/17 06:59 06:59 06:59 Intake Total 1295 1247 Output Total 2200 2250 Balance -905 -1003 Weight 108 kg 104.7 kg Exam: GENERAL: well-nourished and in no acute distress. Alert and oriented x3 HEAD: Atraumatic, normocephalic. EYES: Pupils equal round and reactive to light, extraocular movements intact, sclera anicteric, conjunctiva are normal. ENT: TMs normal, nares patent, oropharynx clear without exudates. Moist mucous membranes. No oral ulcerations or bleeding gums noted NECK: supple without lymphadenopathy. Trachea is central. No cervical or axillary lymphadenopathy noted. Carotids are 2+, JVD WNL LUNGS: Respiration seems nonlabored, no significant accessory muscle action noted. Breath sounds clear to auscultation bilaterally and equal noted. No wheezes rales or rhonchi noted. No significant dullness noted on percussion. CHEST: Palpation of the chest wall shows no significant chest wall tenderness. No other significant abnormalities noted. HEART: [place] [employer], No PSH, 1/6 PIA aortic area, 1/6 chapa systolic murmur mitral area, no rubs, no gallops. ABDOMEN: Soft, no significant tenderness appreciated, normoactive bowel sounds. No guarding, no rebound. No rigidity noted . No masses appreciated. EXTREMITIES: Pedal pulses are 1-2+, no calf tenderness noted. No clubbing or cyanosis.trace to 1+ pedal edema noted NEUROLOGICAL: Focused neurological exam showed no significant neurologic deficit. Normal speech, no focal weakness appreciated. PSYCH: Normal mood, normal affect. Judgment and insight within normal limits. SKIN: No significant ecchymosis, rash, ulcerations or signs of pruritus noted. MUSCULOSKELETAL EXAM: No significant joint swelling noted. Results Laboratory Results: 04/30/17 04:46 04/30/17 04/30/17 04:46 05:30 WBC 6.7 RBC 5.11 Hgb 15.5 Hct 44.8 MCV 88 MCH 30.4 MCHC 34.7 RDW 13.7 Plt Count 176 Urine Color YELLOW Urine Appearance CLEAR Urine pH 5.0 Ur Specific [place] 1.009 Urine Protein NEGATIVE Urine Glucose (UA) NEGATIVE Urine Ketones NEGATIVE Urine Blood NEGATIVE Urine Nitrite NEGATIVE Ur Leukocyte Esterase NEGATIVE Urine WBC (Auto) 0 Urine RBC (Auto) 0 04/27/17 04/28/17 04/28/17 22:40 04:31 04:31 Creatine Kinase 119 CK-MB (CK-2) 3.00 2.11 Troponin I 0.089 0.094 04/28/17 11:05 Creatine Kinase CK-MB (CK-2) 2.02 Troponin I 0.063 Impressions: Lung Scan-VQ NM 04/27/17 00:00 IMPRESSION: Low probability for pulmonary embolus. Chest X-Ray 04/27/17 16:44 IMPRESSION: NO ACUTE RADIOGRAPHIC FINDING IN THE CHEST. Assessment & Plan - Diagnosis (1) Atrial flutter with rapid ventricular response Is this a current diagnosis for this admission?: Yes (2) Chronic kidney disease Qualifiers: Chronic kidney disease stage: stage 3 (moderate) Qualified Code(s): N18.3 - Chronic kidney disease, stage 3 (moderate) Is this a current diagnosis for this admission?: Yes (3) Diabetes mellitus type 2 in nonobese Is this a current diagnosis for this admission?: Yes (4) Hyperlipidemia Qualifiers: Hyperlipidemia type: unspecified Qualified Code(s): E78.5 - Hyperlipidemia , unspecified Is this a current diagnosis for this admission?: Yes - Notes Notes: Atrial flutter: Patient converted to sinus rhythm and currently maintaining sinus rhythm. Continue beta-javed for heart rate control. Continue with Eliquis therapy for prevention of stroke. Chronic kidney disease: Currently stable. Patient should avoid nonsteroidal anti-inflammatory medication and contrast agent. Diabetes: Currently stable. Patient advised on good control and screening for any complications. Dyslipidemia: Patient was started on simvastatin yesterday. Continue with it. Periodic lipid panel liver panel is indicated. I did discuss results of nuclear stress test and 2D echo as well as management plans with patient, patient's girlfriend and daughter. Patient currently stable. Patient had no chest pain on ambulation in the hallway. Feel that patient can be discharged but will need close cardiology follow-up. This is in view of positive stress test. - Time Time with patient: Greater than 35 minutes - CODE STATUS was discussed, patient remains full code. Surrogate decision-maker unchanged. Multiple medical problems were addressed. More than 50% of the time spent coordinating care, discussing management plans with involved caregivers. Management plans discussed with involved personnels. Medical decision making was of moderate to high complexity, patient's has multiple comorbidities. Medications reviewed and adjusted accordingly: Yes
[2017-04-30 11:22] VITALS: BP 151/80
--- NOTE | 2017-04-30 11:43 | PDOC DISCHARGE SUMMARY ---
General - Admit/Disc Date/PCP Admission Date/Primary Care Provider: 04/27/17 17:40 Discharge Date: 04/30/17 - Discharge Diagnosis (1) Atrial flutter with rapid ventricular response Is this a current diagnosis for this admission?: Yes (2) Chronic kidney disease Is this a current diagnosis for this admission?: Yes (3) Diabetes mellitus type 2 in nonobese Is this a current diagnosis for this admission?: Yes (4) Hyperlipidemia Is this a current diagnosis for this admission?: Yes - Additional Information Resuscitation Status: Full Code Home Medications: Glipizide [Glucotrol 5 mg Tablet] 5 mg PO BIDBS 04/28/17 Apixaban [Eliquis 5 mg Tablet] 5 mg PO BID #60 tablet 04/30/17 Aspirin [Ecotrin 81 mg EC Tablet] 81 mg PO DAILY tabec 04/30/17 Metoprolol Succinate [Toprol Xl 50 mg Tab.sr] 50 mg PO Q12 #60 tab.sr.24h Simvastatin [Zocor 40 mg Tablet] 20 mg PO DAILY@2000 #30 tablet 04/30/17 Additional Information: Return to the emergency room if symptoms recur. History of Present Illness Patient complains of: chest pain History of Present Illness: TIMUR LOW is a 76 year old male with past medical history of hypertension, diabetes mellitus and possibly chronic kidney disease who presents to the emergency department with complaints of chest discomfort. Patient reports that 2 days ago he had an episode of right-sided chest pain. He attributed this to lifting crates of soda at work. He took an Aleve and reports it went away. The following day on 929 that evening he noted when taking his blood pressure and heart rate that his heart rate was 150. He noticed that his heart was racing today and a neighbor encouraged him to come to the emergency department. Patient was found to be in SVT and was given adenosine which was then shown to be a flutter. Patient was given diltiazem and his heart rate is now in the 70s. He reports that he stopped taking lisinopril because his blood pressure would go down at work. He does report that when he goes to the doctor he feels his blood pressure and heart rate are both artificially elevated. He also reports that he only takes 1 of his glipizide daily as opposed to 2. He is currently chest pain-free. He has no complaints. Hospital Course Hospital Course: The patient was admitted to [facility]. Patient was on Cardizem drip. Cardiac enzymes were obtained but they were negative for myocardial infarction. Levels however were indeterminate. The patient was placed on aspirin. Cardiology was consulted and eventually started the patient on beta-javed. Patient's heart rate got better controlled and Cardizem drip eventually discontinued. Patient initially anticoagulated with heparin and was transitioned to Eliquis. Stress test was performed showing mild abnormality and cardiology recommended medical management. Lipitor was added to the medication regimen. The patient improved. All dictation resolved. Other workups include VQ scan that was showing low probability for pulmonary embolism. Chest x-ray showing no acute infiltrate. Echocardiogram showing a normal ejection fraction. TSH was normal. The rest of the hospital stays unremarkable. Patient cleared by cardiology to be discharged. Physical Exam Vital Signs: Temp Pulse Resp BP Pulse Ox 97.5 F 109 H 18 151/80 H 99 04/30/17 11:19 04/30/17 11:19 04/30/17 11:19 04/30/17 11:19 04/30/17 11:19 Intake & Output 04/29/17 04/30/17 05/01/17 06:59 06:59 06:59 Intake Total 1295 1247 Output Total 2200 2250 Balance -905 -1003 Weight 108 kg 104.7 kg General appearance: PRESENT: no acute distress, cooperative Head exam: PRESENT: normocephalic Eye exam: PRESENT: EOMI Mouth exam: PRESENT: moist, neck supple Neck exam: ABSENT: JVD Respiratory exam: PRESENT: clear to auscultation joleen. ABSENT: rhonchi, wheezes Cardiovascular exam: PRESENT: RRR. ABSENT: gallop GI/Abdominal exam: PRESENT: soft. ABSENT: distended, tenderness Extremities exam: ABSENT: pedal edema Neurological exam: PRESENT: alert, awake, oriented to situation Skin exam: PRESENT: dry, warm. ABSENT: cyanosis Results Laboratory Results: 04/30/17 04:46 04/30/17 04/30/17 04:46 05:30 WBC 6.7 RBC 5.11 Hgb 15.5 Hct 44.8 MCV 88 MCH 30.4 MCHC 34.7 RDW 13.7 Plt Count 176 Urine Color YELLOW Urine Appearance CLEAR Urine pH 5.0 Ur Specific [place] 1.009 Urine Protein NEGATIVE Urine Glucose (UA) NEGATIVE Urine Ketones NEGATIVE Urine Blood NEGATIVE Urine Nitrite NEGATIVE Ur Leukocyte Esterase NEGATIVE Urine WBC (Auto) 0 Urine RBC (Auto) 0 04/27/17 04/28/17 04/28/17 22:40 04:31 04:31 Creatine Kinase 119 CK-MB (CK-2) 3.00 2.11 Troponin I 0.089 0.094 04/28/17 11:05 Creatine Kinase CK-MB (CK-2) 2.02 Troponin I 0.063 Impressions: Lung Scan-VQ NM 04/27/17 00:00 IMPRESSION: Low probability for pulmonary embolus. Chest X-Ray 04/27/17 16:44 IMPRESSION: NO ACUTE RADIOGRAPHIC FINDING IN THE CHEST. Qualifiers PATEINT BEING DISCHARGED WITH ANY OF THE FOLLOWING DIAGNOSIS?: No Plan [facility] Follow-up with cardiology in 1-[address] Linares. Time Spent: Less than 30 Minutes
== END 2017-04-30 12:43 | disposition home or self-care (01) | DRG 310 ==
LOC: ER 15:44 → EH 17:40 → UNDOADMIN 18:29 → 3N 21:48
PROVIDERS: ADMIT Family Medicine; ATTEND Family Medicine
DX: I48.92 Unspecified atrial flutter (principal); E11.22 Type 2 diabetes mellitus with diabetic chronic kidney disease; I12.9 Hypertensive chronic kidney disease with stage 1 through stage 4 chronic kidney disease, or unspecified chronic kidney disease; N18.3 Chronic kidney disease, stage 3 (moderate); E78.5 Hyperlipidemia, unspecified; Z68.29 Body mass index [BMI] 29.0-29.9, adult; E66.9 Obesity, unspecified; R31.29 Other microscopic hematuria; Z79.899 Other long term (current) drug therapy; Z87.891 Personal history of nicotine dependence; Z82.49 Family history of ischemic heart disease and other diseases of the circulatory system
CPT/HCPCS: 36415; 71010; 78452; 78582; 80053; 80061; 81001; 82272; 82550; 82553; 82962; 83735; 84443; 84484; 85025; 85027; 85610; 85652; 85730; 86140; 93005; 93010; 93017; 93306; 96365; 96366; 96375; 99291; A9500; A9540; A9567; J0153; J0280; J1644; J2785; J3490; J7030; Q9969

== ENCOUNTER 2017-05-24 08:42 | Emergency (ER) | payer MEDICARE, OTHER ==
--- NOTE | 2017-05-24 09:09 | ER Document Report ---
ED General - General Chief Complaint: Chest Pain Stated Complaint: CHEST PAIN Time Seen by Provider: 05/24/17 09:01 Mode of Arrival: Ambulatory Information source: Patient, Relative, [facility] Records TRAVEL OUTSIDE OF THE [place] IN LAST 30 DAYS: No - HPI Patient complains to provider of: chest pain Onset: Yesterday Onset/Duration: Gradual Quality of pain: Dull Associated symptoms: None Exacerbated by: Supine Relieved by: Denies Similar symptoms previously: Yes Recently seen / treated by doctor: Yes Notes: Patient is a 76-year-old male with history of hypertension. Patient was admitted to this facility about 3 weeks ago for an onset of SVT which resolved with medication. Patient is now currently anticoagulated with apixaban. Patient has had no further problems with tachyarrhythmias. Last night, approximately 11 PM, patient developed right sided chest pain. Pain is reproducible with deep breath, movement, and worse when supine. Patient states he was lifting heavy boxes yesterday and thinks he may have strained his chest wall. No shortness of breath, nausea, sweats. He has not felt like his heart is beating too fast today. - Related Data Allergies/Adverse Reactions: lisinopril Allergy (Verified 05/24/17 08:58) Past Medical History - General Information source: Patient, [facility] Records - Social History Smoking Status: Never Smoker Family History: CAD Patient has suicidal ideation: No Patient has homicidal ideation: No - Past Medical History Cardiac Medical History: Reports: Hx Hypertension Endocrine Medical History: Reports: Hx Diabetes Mellitus Type 2 Renal/ Medical History: Denies: Hx Peritoneal Dialysis Past Surgical History: Reports: Hx Adenoidectomy, Hx Tonsillectomy - Immunizations Hx Diphtheria, Pertussis, Tetanus Vaccination: No Review of Systems - Review of Systems Cardiovascular: Chest pain Respiratory: No symptoms reported Gastrointestinal: No symptoms reported -: Yes All other systems reviewed and negative Physical Exam - Vital signs Vitals: Temp Pulse Resp BP Pulse Ox 98.2 F 80 18 188/92 H 95 05/24/17 08:55 05/24/17 08:55 05/24/17 08:55 05/24/17 08:55 05/24/17 08:55 Interpretation: Normal - General General appearance: Appears well, Alert - HEENT Head: Normocephalic, Atraumatic Eyes: Normal Pupils: PERRL - Respiratory Respiratory status: No respiratory distress Chest status: Nontender Breath sounds: Normal Chest palpation: Normal - Cardiovascular Rhythm: Regular Heart sounds: Normal auscultation Murmur: No - Abdominal Inspection: Normal Distension: No distension Bowel sounds: Normal Tenderness: Nontender Organomegaly: No organomegaly - Back Back: Normal, Nontender - Extremities General upper extremity: Normal inspection, Nontender, Normal color, Normal ROM , Normal temperature General lower extremity: Normal inspection, Nontender, Normal color, Normal ROM , Normal temperature, Normal weight bearing. No: Ino's sign - Neurological Neuro grossly intact: Yes Cognition: Normal Orientation: AAOx4 [place] Coma Scale Eye Opening: Spontaneous [place] Coma Scale Verbal: Oriented Mary Coma Scale Motor: Obeys Commands Mary Coma Scale Total: 15 Speech: Normal Motor strength normal: LUE, RUE, LLE, RLE Sensory: Normal - Psychological Associated symptoms: Normal affect, Normal mood - Skin Skin Temperature: Warm Skin Moisture: Dry Skin Color: Normal Course - Re-evaluation Re-evalutation: 05/24/17 10:03 Symptoms are most likely musculoskeletal in etiology. Emergency department workup is unremarkable. Results have been reviewed and discussed with patient. No indication for admission or further interventional procedures. Will discharge home. - Vital Signs Vital signs: Temp Pulse Resp BP Pulse Ox 98.2 F 80 18 188/92 H 95 05/24/17 08:55 05/24/17 08:55 05/24/17 08:55 05/24/17 08:55 05/24/17 08:55 - Laboratory Result Diagrams: 05/24/17 09:15 05/24/17 09:15 Laboratory results interpreted by me: 05/24/17 05/24/17 09:15 09:15 Plt Count 143 L Seg Neutrophils % 78.1 H Lymphocytes % 10.4 L Carbon Dioxide 31 H BUN 24 H Creatinine 1.44 H Est GFR ( Amer) 58 L Est GFR (Non-Af Amer) 48 L Glucose 143 H - Diagnostic Test Radiology reviewed: Image reviewed, Reports reviewed Radiology results interpreted by me: 05/24/17 10:03 CXR: NAD - EKG Interpretation by Me EKG shows normal: Sinus rhythm Rate: Normal Rhythm: NSR [place]/QRS: No: Right axis deviation, Left axis deviation When compared to previous EKG there are: No significant change Discharge - Discharge Clinical Impression: Chest pain Condition: Good Disposition: HOME, SELF-CARE Instructions: Chest Pain of Unclear Cause ([facility]) Additional Instructions: Continue on your current medications. Follow-up with your primary care provider. Return to the emergency department if worse or for any other problems.
[2017-05-24 09:31] LABS: ABSOLUTE BASOPHILS # (AUTO) 0.1 10^3/uL (0.0-0.2); ABSOLUTE EOSINOPHILS # (AUTO) 0.2 10^3/uL (0.0-0.6); ABSOLUTE MONOCYTES (AUTO) 0.8 10^3/uL (0.1-1.4); ABSOLUTE NEUT (AUTO) 7.3 10^3/uL (1.7-8.2); BASOPHILS % (AUTO) 0.7 % (0-2); HEMATOCRIT 45.1 % (37.9-51.0); HEMOGLOBIN 15.5 g/dL (13.5-17.0); HGB HCT DIFFERENCE 1.4; LYMPHOCYTES % (AUTO) 10.4 % (13-45); MEAN CORPUSCULAR HEMOGLOBIN 30.1 pg (27.0-33.4); MEAN CORPUSCULAR HGB CONC 34.4 g/dL (32.0-36.0); MEAN CORPUSCULAR VOLUME 88 fl (80-97); MONOCYTES % (AUTO) 8.8 % (3-13); RED BLOOD COUNT 5.14 10^6/uL (4.35-5.55); RED CELL DISTRIBUTION WIDTH 13.7 % (11.5-14.0); SEGMENTED NEUTROPHILS % (AUTO) 78.1 % (42-78); WHITE BLOOD COUNT 9.3 10^3/uL (4.0-10.5)
--- NOTE | 2017-05-24 09:45 | RADIOLOGY REPORT (SQ) ---
EXAM DESCRIPTION: CHEST SINGLE VIEW COMPLETED DATE/TIME: 05/24/2017 9:37 am REASON FOR STUDY: cp COMPARISON: 04/27/2017. EXAM PARAMETERS: NUMBER OF VIEWS: One view. TECHNIQUE: Single frontal radiographic view of the chest acquired. RADIATION DOSE: NA LIMITATIONS: None. FINDINGS: LUNGS AND PLEURA: No opacities, masses or pneumothorax. No pleural effusion. MEDIASTINUM AND HILAR STRUCTURES: No masses. Contour normal. HEART AND VASCULAR STRUCTURES: Heart upper limits of normal in size. Normal vasculature. BONES: No acute findings. HARDWARE: None in the chest. OTHER: No other significant finding. IMPRESSION: NO ACUTE RADIOGRAPHIC FINDING IN THE CHEST. TECHNICAL DOCUMENTATION: JOB ID: [id number]
[2017-05-24 09:49] LABS: ALANINE AMINOTRANSFERASE 41 U/L (21-72); ALBUMIN 4.3 g/dL (3.5-5.0); ALKALINE PHOSPHATASE 99 U/L (38-126); ANION GAP 10 (5-19); ASPARTATE AMINO TRANSFERASE 41 U/L (17-59); BILIRUBIN,DIRECT 0.4 mg/dL (0.0-0.4); BILIRUBIN,TOTAL 1.1 mg/dL (0.2-1.3); BLOOD UREA NITROGEN 24 mg/dL (7-20); CALCIUM 9.3 mg/dL (8.4-10.2); CARBON DIOXIDE 31 mmol/L (22-30); CHLORIDE 102 mmol/L (98-107); CREATININE RESULT 1.44 mg/dL (0.52-1.25); GLUCOSE 143 mg/dL (75-110); POTASSIUM 4.7 mmol/L (3.6-5.0); SODIUM 143.1 mmol/L (137-145); TOTAL PROTEIN 6.8 g/dL (6.3-8.2)
[2017-05-24 10:21] VITALS: BP 147/82
--- NOTE | 2017-05-24 10:32 | EKG REPORT ---
SEVERITY:- BORDERLINE ECG - SINUS RHYTHM BORDERLINE ST ELEVATION, INFERIOR LEADS : Confirmed by: Cesar Linares 24-May-2017 10:31:47
== END 2017-05-24 10:30 | disposition home or self-care (01) ==
LOC: ER 08:42
DX: R07.9 Chest pain, unspecified (principal); I10 Essential (primary) hypertension; E11.9 Type 2 diabetes mellitus without complications; I47.1 Supraventricular tachycardia; Z79.02 Long term (current) use of antithrombotics/antiplatelets; Z88.8 Allergy status to other drugs, medicaments and biological substances; Z82.49 Family history of ischemic heart disease and other diseases of the circulatory system
CPT/HCPCS: 36415; 71010; 80053; 84484; 85025; 93005; 93010; 99285